=== PATIENT | female | born 2000 | race African-American/Black ===

== ENCOUNTER → 2021-12-19 | Outpatient (CLI) | payer OTHER | LOC: M WHC 10:53 → EDUNIT# 11:00 | PROVIDERS: ATTEND Nurse Practitioner Family | DX: N63.20 Unspecified lump in the left breast, unspecified quadrant (principal); N63.10 Unspecified lump in the right breast, unspecified quadrant ==

== ENCOUNTER → 2022-01-26 | Outpatient (CLI) | payer OTHER | LOC: M RAD 09:12 | PROVIDERS: ATTEND Nurse Practitioner | DX: M25.551 Pain in right hip (principal) | CPT/HCPCS: 78315; A9503 ==

== ENCOUNTER 2022-09-28 14:16 | Outpatient (CLI) | payer OTHER ==
[~2022-09-28] VITALS: Ht 170.2 cm; Wt 104.4 kg
[2022-09-28 07:30] VITALS: BP 148/78
[~2022-09-28 14:16] MED LIST: ACETAMINOPHEN 650MG PO PRIOR TO INFUSION PO ONE; ALBUTEROL SULFATE 2.5 MG/0.5 ML INH NEB SOLN INH PRN; EPINEPHrine INJ 1 MG/ML 1ML AMP IM PRN; IRON SUCROSE 200 MG in NS 100 ML OVER 1 HR IV ONE; NS 1,000 ML IV SCH; diphenhydrAMINE 25MG PO PRIOR TO INFUSION PO ONE; diphenhydrAMINE 50MG/ML VIAL IV PRN; methylPREDNISolone 125MG 2ML VIAL IV PRN
[2022-09-28 14:25] VITALS: BP 128/59
[2022-09-28 16:13] VITALS: BP 110/57
== END 2022-09-28 16:15 ==
LOC: M INFU 14:16
PROVIDERS: ATTEND Registered Nurse
DX: D64.9 Anemia, unspecified (principal)
CPT/HCPCS: 96365; J1756

== ENCOUNTER 2022-10-06 14:25 | Outpatient (CLI) | payer OTHER ==
[~2022-10-06] VITALS: Ht 170.2 cm; Wt 104.0 kg
[2022-10-06 14:25] VITALS: BP 124/58
[~2022-10-06 14:25] MED LIST changes: -ACETAMINOPHEN 650MG PO PRIOR TO INFUSION PO ONE; -IRON SUCROSE 200 MG in NS 100 ML OVER 1 HR IV ONE; -NS 1,000 ML IV SCH; -diphenhydrAMINE 25MG PO PRIOR TO INFUSION PO ONE
[2022-10-06] MEDS ORDERED: NS 1,000 ML IV SCH (14:30)
[2022-10-06] MEDS ORDERED: IRON SUCROSE 200 MG in NS 100 ML OVER 1 HR IV ONE (14:30)
[2022-10-06] MEDS ORDERED: diphenhydrAMINE 25MG CAP PO ONE (14:30)
[2022-10-06] MEDS ORDERED: ACETAMINOPHEN TAB 650MG DOSE (2X325MG) PO ONE (14:30)
[2022-10-06 16:09] VITALS: BP 98/51
== END 2022-10-06 16:10 | disposition home or self-care (01) ==
LOC: M INFU 14:25
PROVIDERS: ATTEND Registered Nurse
DX: D50.9 Iron deficiency anemia, unspecified (principal)
CPT/HCPCS: 96365; J1756

== ENCOUNTER 2022-10-13 14:30 | Outpatient (CLI) | payer OTHER ==
[~2022-10-13] VITALS: Ht 170.2 cm; Wt 104.4 kg
[~2022-10-13 14:30] MED LIST changes: +ACETAMINOPHEN TAB 650MG DOSE (2X325MG) PO ONE; +IRON SUCROSE 200 MG in NS 100 ML OVER 1 HR IV ONE; +NS 1,000 ML IV SCH; +diphenhydrAMINE 25MG CAP PO ONE
[2022-10-13 14:47] VITALS: BP 124/59
[2022-10-13 16:02] VITALS: BP 118/78
== END 2022-10-13 16:00 | disposition home or self-care (01) ==
LOC: M INFU 14:30
PROVIDERS: ATTEND Registered Nurse
DX: D50.9 Iron deficiency anemia, unspecified (principal)
CPT/HCPCS: 96365; J1756

== ENCOUNTER 2022-12-06 10:29 | Outpatient (CLI) | payer OTHER ==
[~2022-12-06] VITALS: Ht 170.2 cm; Wt 115.3 kg
[2022-12-06 10:55] VITALS: BP 134/62
[2022-12-06] MEDS ORDERED: PRENTAB9 PO (10:58)
[2022-12-06] MEDS ORDERED: FOLI800C PO (11:05)
[2022-12-06] MEDS ORDERED: ADV100INH INH (11:05)
[2022-12-06] MEDS ORDERED: HOME MED LIST COMPLETE! XX SCH (11:15)
== END 2022-12-06 12:36 | disposition home or self-care (01) ==
LOC: M LDO 10:29
PROVIDERS: ATTEND Obstetrics & Gynecology
DX: O47.1 False labor at or after 37 completed weeks of gestation (principal); O48.0 Post-term pregnancy; Z3A.40 40 weeks gestation of pregnancy; O99.513 Diseases of the respiratory system complicating pregnancy, third trimester; J45.909 Unspecified asthma, uncomplicated; O99.013 Anemia complicating pregnancy, third trimester; D64.9 Anemia, unspecified; O99.213 Obesity complicating pregnancy, third trimester; E66.9 Obesity, unspecified
CPT/HCPCS: 59025; 76815; G0378; G0463

== ENCOUNTER 2022-12-06 23:48 | Inpatient (IN) | payer OTHER ==
[~2022-12-06] VITALS: Ht 170.2 cm; Wt 117.0 kg
[~2022-12-06 23:48] MED LIST changes: -ACETAMINOPHEN TAB 650MG DOSE (2X325MG) PO ONE; +ADV100INH INH; -ALBUTEROL SULFATE 2.5 MG/0.5 ML INH NEB SOLN INH PRN; -EPINEPHrine INJ 1 MG/ML 1ML AMP IM PRN; +FOLI800C PO; -IRON SUCROSE 200 MG in NS 100 ML OVER 1 HR IV ONE; -NS 1,000 ML IV SCH; +PRENTAB9 PO; -diphenhydrAMINE 25MG CAP PO ONE; -diphenhydrAMINE 50MG/ML VIAL IV PRN; -methylPREDNISolone 125MG 2ML VIAL IV PRN
[2022-12-07] MEDS ORDERED: LACTATED RINGER'S 1000 ML IV STA (00:23)
[2022-12-07] MEDS ORDERED: LIDOCAINE 1% MDV 20ML VIAL INFIL PRN (00:25)
[2022-12-07] MEDS ORDERED: OXYTOCIN INJ 10UNITS/ML 1ML VIAL IM PRN (00:25)
[2022-12-07] MEDS ORDERED: TRANEXAMIC ACID INJection 1,000 MG in NS 100 ML IV PRN (00:25)
[2022-12-07] MEDS ORDERED: OXYTOCIN INJ 10UNITS/ML 1ML VIAL IV PRN (00:25)
[2022-12-07] MEDS ORDERED: LR 1,000 ML IV SCH ×2 (00:25→02:05)
[2022-12-07] MEDS ORDERED: OXYTOCIN DRIP 30 UNITS in IV 1 EA IV PRN ×6 (00:25)
[2022-12-07] MEDS ORDERED: METHYLERGONOVINE MALEATE 0.2 MG/ML VIAL (J2210) IM PRN (00:25)
[2022-12-07 01:01] LABS: HEMATOCRIT 35.4 % (36.0-47.0); HEMOGLOBIN 11.6 g/dl (12.0-15.5); MEAN CORPUSCULAR HEMOGLOBIN 28.9 pg (27.0-33.0); MEAN CORPUSCULAR HGB CONC 32.8 g/dl (32.0-36.5); MEAN CORPUSCULAR VOLUME 88.3 fl (80.0-96.0); PLATELET COUNT, AUTOMATED 322 10^3/uL (150-450); RED BLOOD COUNT 4.01 10^6/uL (4.00-5.40)
[2022-12-07] MEDS ORDERED: NALOXONE INJ 0.4MG/1ML VIAL IV PRN (01:20)
[2022-12-07] MEDS ORDERED: LR 500 ML IV PRN (01:20)
[2022-12-07] MEDS ORDERED: ePHEDrine SULFATE 25 MG/5 ML(5MG/ML) SYRINGE IVP PRN (01:20)
[2022-12-07] MEDS ORDERED: diphenhydrAMINE 50MG/ML VIAL IV PRN (01:20)
[2022-12-07] MEDS ORDERED: ONDANSETRON 4MG 2ML VIAL IV PRN (01:20)
[2022-12-07] MEDS ORDERED: FENTANYL/ROPIVACAINE/NACL BAG 100 ML EPIDURAL SCH (01:20)
[2022-12-07] MEDS ORDERED: EPIDURAL/PCA KEYS XX PRN (01:20)
[2022-12-07] MEDS ORDERED: ACETAMINOPHEN TAB 650MG DOSE (2X325MG) PO PRN (02:05)
[2022-12-07] MEDS ORDERED: IBUPROFEN 600MG TAB PO PRN (02:05)
[2022-12-07] MEDS ORDERED: OXYTOCIN DRIP 30 UNITS in IV 1 EA IV SCH ×4 (02:05)
[2022-12-07] MEDS ORDERED: DOCUSATE SODIUM 100MG CAPSULE PO PRN (02:05)
[2022-12-07] MEDS ORDERED: MOM 30ML SUSPENSION UDC PO PRN (02:05)
[2022-12-07] MEDS ORDERED: RHOGAM 300MCG (1500IU) INJ IM SCH (02:05)
[2022-12-07] MEDS ORDERED: DIBUCAINE 1% OINTMENT 30GM TOP PRN (02:05)
[2022-12-07] MEDS ORDERED: METHYLERGONOVINE MALEATE 0.2 MG TAB PO PRN (02:05)
[2022-12-07 04:22] VITALS: BP 110/59
[2022-12-07] MEDS: PRENATAL VITAMINS CHEWABLE TABLET PO SCH (10:54)
[2022-12-07] MEDS: ACETAMINOPHEN 500 MG TAB PO PRN (13:43)
[2022-12-07 18:00] VITALS: BP 123/65
[2022-12-08 06:02] VITALS: BP 109/55
[2022-12-08] MEDS: IBUPROFEN 800 MG TAB PO PRN ×2 (06:41→15:30)
[2022-12-08] MEDS: PRENATAL VITAMINS CHEWABLE TABLET PO SCH (09:24)
[2022-12-08] MEDS: ACETAMINOPHEN 500 MG TAB PO PRN (09:24)
[2022-12-09] MEDS ORDERED: MEASLES,MUMPS,RUBELLA VACCINE INJ (MMR-II) SC.IMMUN ONE (09:00)
== END 2022-12-08 15:45 | disposition home or self-care (01) | DRG 807 ==
LOC: M LDO 23:48 → M LDI 12-07 00:18 → M OBS 12-07 05:32
PROVIDERS: ADMIT Obstetrics & Gynecology; ATTEND Obstetrics & Gynecology
PROC: 10D17Z9 Manual Extraction of Products of Conception, Retained, Via Natural or Artificial Opening (ICD-10-PCS; principal; 2022-12-07)
PROC: 10E0XZZ Delivery of Products of Conception, External Approach (ICD-10-PCS; 2022-12-07)
PROC: 0HQ9XZZ Repair Perineum Skin, External Approach (ICD-10-PCS; 2022-12-07)
DX: O48.0 Post-term pregnancy (principal); Z37.0 Single live birth; Z3A.40 40 weeks gestation of pregnancy; O99.52 Diseases of the respiratory system complicating childbirth; J45.909 Unspecified asthma, uncomplicated; O99.214 Obesity complicating childbirth; E66.9 Obesity, unspecified; O99.02 Anemia complicating childbirth; D64.9 Anemia, unspecified; O70.0 First degree perineal laceration during delivery; O73.1 Retained portions of placenta and membranes, without hemorrhage

== ENCOUNTER 2023-08-30 21:59 | Emergency (ER) | payer OTHER ==
[~2023-08-30] VITALS: Ht 170.2 cm; Wt 111.4 kg
[2023-08-30 22:00] VITALS: BP 119/69; TEMP 98; O2SAT 100
== END 2023-08-31 02:04 | disposition left against medical advice (07) ==
LOC: M ED 21:59
DX: Z53.21 Procedure and treatment not carried out due to patient leaving prior to being seen by health care provider (principal)

== ENCOUNTER → 2024-09-04 | Outpatient (REF) | LOC: M PLAIMG 08:42 | PROVIDERS: ATTEND Internal Medicine | DX: R07.9 Chest pain, unspecified (principal) ==

== ENCOUNTER 2024-09-19 19:15 | Emergency (ER) | payer OTHER ==
[~2024-09-19] VITALS: Ht 170.2 cm; Wt 95.4 kg
[2024-09-20 00:05] LABS: ALBUMIN 3.8 G/DL (3.2-5.2); ALKALINE PHOSPHATASE 63 U/L (35-104); ALT/SGPT 14 U/L (7.0-40); AST/SGOT < 8 U/L (<34); BILIRUBIN,DIRECT 0.3 MG/DL (<0.4); BILIRUBIN,TOTAL 0.9 MG/DL (0.3-1.2); BLOOD UREA NITROGEN 15 MG/DL (9-23); CALCIUM LEVEL 9.3 MG/DL (8.5-10.1); CARBON DIOXIDE LEVEL 23 MMOL/L (20-31); CHLORIDE LEVEL 110 MMOL/L (98-107); CK-MB VALUE MASS < 1.0 NG/ML (<3.6); CPK CREATINE PHOSPHOKINASE 124 U/L (34-145); CREATININE FOR GFR 0.83 MG/DL (0.55-1.30); GLOMERULAR FILTRATION RATE > 60.0 (>60); GLUCOSE, FASTING 84 MG/DL (60-100); MAGNESIUM LEVEL 2.1 MG/DL (1.8-2.4); SODIUM LEVEL 139 MMOL/L (136-145); TOTAL PROTEIN 7.3 G/DL (5.7-8.2)
[2024-09-20 00:09] LABS: HCG, SERUM QUALITATIVE NEGATIVE (NEGATIVE)
[2024-09-20 00:57] LABS: BASO % 0.5 % (0.0-1.0); EOS # 0.1 10^3/uL (0.0-0.5); EOS % 2.4 % (0.0-3.0); HEMATOCRIT 37.6 % (36.0-47.0); HEMOGLOBIN 12.4 g/dl (12.0-15.5); LYMPH # 3.2 10^3/uL (1.5-5.0); LYMPH % 57.7 % (24.0-44.0); MEAN CORPUSCULAR HEMOGLOBIN 29.3 pg (27.0-33.0); MEAN CORPUSCULAR VOLUME 88.9 fl (80.0-96.0); MONO # 0.4 10^3/uL (0.0-0.8); MONO % 6.4 % (2.0-8.0); NEUTROPHILS # 1.8 10^3/uL (1.5-8.5); PLATELET COUNT, AUTOMATED 355 10^3/uL (150-450); RED BLOOD COUNT 4.23 10^6/uL (4.00-5.40); WHITE BLOOD COUNT 5.5 10^3/uL (4.0-10.0)
[2024-09-20 03:11] LABS: CK-MB VALUE MASS < 1.0 NG/ML (<3.6)
[2024-09-20 03:12] LABS: CPK CREATINE PHOSPHOKINASE 112 U/L (34-145); MB/CK RELATIVE INDEX 0.89 (< OR =4)
[2024-09-20 05:04] VITALS: BP 99/55; TEMP 97.5; O2SAT 100
== END 2024-09-20 05:11 | disposition home or self-care (01) ==
LOC: M ED 19:15
DX: S29.011A Strain of muscle and tendon of front wall of thorax, initial encounter (principal); R00.1 Bradycardia, unspecified; X58.XXXA Exposure to other specified factors, initial encounter; Y92.9 Unspecified place or not applicable; Y93.9 Activity, unspecified; Y99.9 Unspecified external cause status; Z79.899 Other long term (current) drug therapy

== ENCOUNTER → 2024-10-06 | Outpatient (REF) ==
[~2024-10-06] MED LIST changes: -ADV100INH INH; +ADVA1AER8 INH
[2024-10-09 14:18] LABS: QuantiFERON-TB Gold Plus POSITIVE (NEGATIVE)
== END ==
LOC: M LAB 10:58
PROVIDERS: ATTEND Family Medicine
DX: Z02.1 Encounter for pre-employment examination (principal)

== ENCOUNTER → 2024-10-13 | Outpatient (REF) | LOC: M RAD 13:34 | PROVIDERS: ATTEND Family Medicine | DX: Z11.1 Encounter for screening for respiratory tuberculosis (principal) ==

== ENCOUNTER → 2025-03-23 | Outpatient (REF) | LOC: M PLAIMG 08:58 | PROVIDERS: ATTEND Internal Medicine | DX: R06.02 Shortness of breath (principal) ==